=== PATIENT | male | born 1965 | race American Indian/Alaskan Native ===

== ENCOUNTER 2016-10-09 03:16 | Emergency (ER) | payer BC ==
[2016-10-09 06:40] VITALS: BP 135/90
--- NOTE | 2016-10-09 07:38 | Emergency Department Report ---
HPI - General Chief Complaint: Skin/Abscess/Foreign Body Time Seen by Provider: 10/09/16 07:33 - HPI HPI: Patient is a 51-year-old male presents to ED complaining of having ear protector stuck in his ears 2 AM early this morning. Patient states he went to take off his earplugs and a piece of it broke and would not come out of his ear. Patient denies ear pain ear aching ear trauma, fever, chills, nausea, vomiting or any other problems. Patient states he states he has to object removed from his ears. ED Past Medical Hx - Past Medical History Previous Medical History?: Yes Hx Hypertension: Yes - Surgical History Past Surgical History?: No - Social History Smoking Status: Never Smoker Substance Use Type: None ED Review of Systems ROS: Stated complaint: FOREIGN OBJECT IN RT EAR Other details as noted in HPI Constitutional: denies: chills, fever Eyes: denies: eye pain, eye discharge, vision change ENT: denies: ear pain, throat pain Respiratory: denies: cough, shortness of breath, wheezing Cardiovascular: denies: chest pain, palpitations Endocrine: no symptoms reported Gastrointestinal: denies: abdominal pain, nausea, diarrhea Genitourinary: denies: urgency, dysuria Musculoskeletal: denies: back pain, joint swelling, arthralgia Skin: denies: rash, lesions Neurological: denies: headache, weakness, paresthesias Psychiatric: denies: anxiety, depression Hematological/Lymphatic: denies: easy bleeding, easy bruising Physical Exam - Physical Exam Vital Signs: Vital Signs 10/09/16 10/09/16 03:20 06:39 Temperature 97.9 F Pulse Rate 77 66 Respiratory 18 20 Rate Blood Pressure 135/90 Blood Pressure 140/89 [Right] O2 Sat by Pulse 100 96 Oximetry Physical Exam: GENERAL: Alert and oriented x3, no apparent distress, Normal Gait, atraumatic. HEAD: Head is normocephalic and a-traumatic. EYES: Extra ocular muscles are intact. Pupils are equal, round, and reactive to light and accommodation. EARS: symetrical, atraumatic, non tender, right ear foreign body seen in the ear canal. After removal of foreign object: Ear canal clear and moderate cerumen, tympanic membrance non inflamed. gross auditory nml bilaterally. MOUTH:Mouth is well hydrated and without lesions. Tonsils nonerythematous or swollen, Uvula midline, Tongue not elevated. Mucous membranes are moist. Posterior pharynx clear, no exudate or lesions. Patent airways. NECK: Supple. Non edematous, No carotid bruits. No lymphadenopathy or thyromegaly. LUNGS: Symetrical with respiration, No wheezing, no rales or crackles, CTAB. HEART: S1, S2 present, regular rate and rhythm without murmur, no rubs, no gallops. ABDOMEN: No organomegaly was noted,Positive bowel sounds, soft, and non- distended. . Nontender to palpation on all Quadrants, NO CVA tenderness. EXTREMITIES/MUSCULOSKELETAL: No cyanosis, clubbing, rash, lesions or edema. Full ROM bilaterally. UE/LE Pulses 2+ bilaterally. LE and UE 5+ strength bilaterally SKIN: Warm and dry, No lesions, No ulceration or induration present. ED Course Vital Signs 10/09/16 10/09/16 03:20 06:39 Temperature 97.9 F Pulse Rate 77 66 Respiratory 18 20 Rate Blood Pressure 135/90 Blood Pressure 140/89 [Right] O2 Sat by Pulse 100 96 Oximetry ED Medical Decision Making - Medical Decision Making 51-year-old male presents with foreign body of right ear. ED course: Patient's foreign body removed from right ear with pickups. Vital signs are stable. Patient has no other complaints. Patient is in no acute respiratory distress. Patient discharged home to transport. Discussed the patient to follow-up with His primary care as needed. Critical care attestation.: If time is entered above; I have spent that time in minutes in the direct care of this critically ill patient, excluding procedure time. ED Disposition Clinical Impression: Foreign body of ear, right Qualifiers: Encounter type: initial encounter Qualified Code(s): T16.1XXA - Foreign body in right ear, initial encounter Disposition: DISCHARGED TO HOME OR SELFCARE Is pt being admited?: No Does the pt Need Aspirin: No Condition: Stable Instructions: Ear Foreign Body (ED) Referrals: PRIMARY CARE, [Primary Care Provider] - 3-5 Days FADI ZIMMERMAN MD [Referring] - 3-5 Days OPHELIA WELSH MD [Referring] - 3-5 Days Forms: Work/School Release Form(ED) Time of Disposition: 07:35
== END 2016-10-09 07:39 | disposition home or self-care (01) ==
LOC: ED 03:16
DX: T16.1XXA Foreign body in right ear, initial encounter (principal); W45.8XXA Other foreign body or object entering through skin, initial encounter; Y93.89 Activity, other specified; Y99.8 Other external cause status; Y92.89 Other specified places as the place of occurrence of the external cause; I10 Essential (primary) hypertension
CPT/HCPCS: 99282